=== PATIENT | female | born 2000 | race Caucasian/White ===

== ENCOUNTER 2024-11-19 16:29 | Emergency (ER) | payer BC, SELFPAY ==
[2024-11-19] VITALS (11 sets, daily range): BP systolic 112–148; BP diastolic 75–86; PULSE 97–119; RESP 14–22; TEMP 36.9; O2SAT 97–99
--- NOTE | ~2024-11-19 | US_ITS ---
EXAMINATION: US venous doppler [facility] DATE: 11/19/2024 17:13 INDICATION: vericose veins, r/o dvt . TECHNIQUE: Grayscale images without and with compression and Doppler images of the left lower extremi ty veins were obtained. COMPARISON: None FINDINGS: The left common femoral vein, profunda (deep) femoral vein, femoral vein, popliteal vein, peroneal v ein, posterior tibial veins, gastrocnemius vein, and greater saphenous vein are patent. IMPRESSION: Patent left lower extremity veins. No evidence of deep venous thrombosis. Reviewed, dictated and finalized at location K.
[2024-11-19 17:00] LABS: Hematocrit 29.3 % (37.0-47.0); Hemoglobin 9.5 g/dL (12.0-15.0); Immature Granulocyte Percent A 0.5 % (0-0.5); Lymphocytes Absolute Auto 1.53 K/mm3 (0.9-3.2); Mean Corpuscular HGB Conc 32.4 g/dl (32-36); Mean Corpuscular Hemoglobin 29.3 pg (26-34); Mean Corpuscular Volume 90.4 fl (80-100); Nucleated Red Blood Cells Absolute Auto 0.000 K/mm3 (0.0-0.012); Nucleated Red Blood Cells Perc 0.0 % (0.0-0.2); Platelet Count Result 273 k/mm3 (150-375); Red Blood Count 3.24 M/mm3 (4.2-5.4); White Blood Count 8.8 K/mm3 (4.5-10.0)
[2024-11-19 17:09] LABS: Alanine Aminotransferase 16 U/L (6-35); Albumin Level 3.4 g/dL (3.5-5.1); Alkaline Phosphatase 94 U/L (38-126); Anion Gap 9 mmol/L (4-12); Aspartate Amino Transferase 22 U/L (14-36); Bilirubin,Total 0.4 mg/dL (0.2-1.3); Blood Urea Nitrogen 7 mg/dL (7-17); Calcium 8.8 mg/dL (8.4-10.2); Carbon Dioxide 21 mmol/L (22-30); Chloride 105 mmol/L (98-107); Estimated CRCL calculation 147 ml/min; Estimated Glomerular Filt Rate > 60; Glucose 133 mg/dL (65-110); Potassium 3.5 mmol/L (3.4-5.0); Sodium 135 mmol/L (137-145); Total Protein 6.7 g/dL (6.3-8.2)
[2024-11-19 17:17] LABS: INR 1.0; Partial Thromboplastin Time 27.6 Seconds (22.3-36.8); Prothrombin Time 13.6 Seconds (11.1-14.7)
--- NOTE | 2024-11-19 17:19 | ED_ITS ---
HPI - Extremity Problem General Chief complaint: Extremity Problem,Nontraumatic Stated complaint: left leg pain Time Seen by Provider: 11/19/24 16:31 History of Present Illness HPI Narrative: Patient is a 24-year-old female who presents ER with distended veins the left lower extremity. She has noticed some over last 1-2 months. She is 35 weeks . She reports the veins become very engorged and sometimes painful and red when she is standing. No chest pain. Mild shortness of breath related to her . No fevers chills or sweats. No history DVT. PCP wanted her evaluated. Related Data Allergies Allergy/AdvReac Type Severity Reaction Status Date / Time No Known Allergies Allergy Verified 11/19/24 17:01 Review of Systems 2 Review of Systems: All systems reviewed & are unremarkable except as noted in HPI and below Constitutional: Constitutional: Reports no additional constitutional complaints Cardiovascular: Cardiovascular: Reports no additional cardiovascular complaints Respiratory: Respiratory: Reports no additional respiratory complaints Musculoskeletal: Musculoskeletal: Reports no additional musculoskeletal complaints Neurologic: Reports system reviewed and no additional complaints, except as documented Exam 2 Narrative: GENERAL: Well-appearing, well-nourished, and in no acute distress. HEAD: Normocephalic, atraumatic. ENT: Mucous membranes moist. CHEST: Clear to auscultation. No respiratory distress. HEART: Regular rate and rhythm. Normal peripheral pulses. ABDOMEN: Soft, nontender, nondistended. EXTREMITIES: Normal range of motion. No edema. Varicose veins left lower extremity. No evidence of thrombosis or inflammation. SKIN: Warm, dry, no rash. NEURO: Alert and oriented x3. PSYCH: Normal mood and affect. Course Course Emergency Course: Patient resting comfortably. Informed of results. No DVT. Recommend compression hose to above the knee for discomfort. Vital Signs Vital signs: Vital Signs Temperature 98.4 F 11/19/24 16:56 Pulse Rate 107 H 11/19/24 16:56 Respiratory Rate 20 11/19/24 16:56 Blood Pressure 112/75 11/19/24 16:56 Pulse Oximetry 99 11/19/24 16:56 Oxygen Delivery Room Air 11/19/24 16:56 Temperature 98.4 F 11/19/24 16:56 Pulse Rate 107 H 11/19/24 16:56 Respiratory Rate 20 11/19/24 16:56 Blood Pressure 112/75 11/19/24 16:56 Pulse Oximetry 99 11/19/24 16:56 Oxygen Delivery Room Air 11/19/24 16:56 MDM - Extremity (Nontraumatic) Lab Data 11/19/24 16:51 11/19/24 16:51 Labs: Lab Results 11/19/24 Range/Units 16:51 WBC 8.8 (4.5-10.0) K/mm3 RBC 3.24 L (4.2-5.4) M/mm3 Hgb 9.5 L (12.0-15.0) g/dL Hct 29.3 L (37.0-47.0) % MCV 90.4 (80-100) fl MCH 29.3 (26-34) pg MCHC 32.4 (32-36) g/dl RDW 14.6 H (11.5-14.5) % Plt Count 273 (150-375) k/mm3 MPV 8.7 (7.4-10.4) fl Immature Gran % (Auto) 0.5 (0-0.5) % Neut % (Auto) 73.3 H (45.5-73.1) % Lymph % (Auto) 17.3 L (18.3-44.2) % [place] % (Auto) 7.5 (2.6-8.5) % Eos % (Auto) 1.2 (0-4.4) % Baso % (Auto) 0.2 (0.2-1.2) % Lymph # (Auto) 1.53 (0.9-3.2) K/mm3 [place] # (Auto) 0.7 H (0.1-0.6) K/mm3 Eos # (Auto) 0.1 (0-0.3) K/mm3 Baso # (Auto) 0.0 (0.0-0.1) K/mm3 Abs Immat Gran (auto) 0.04 H (0.00-0.031) K/mm3 Absolute Neuts (auto) 6.5 (1.3-6.7) K/mm3 Absolute Nucleated RBC 0.000 (0.0-0.012) K/mm3 Nucleated RBC % 0.0 (0.0-0.2) % PT 13.6 (11.1-14.7) Seconds INR 1.0 APTT 27.6 (22.3-36.8) Seconds Sodium 135 L (137-145) mmol/L Potassium 3.5 (3.4-5.0) mmol/L Chloride 105 (98-107) mmol/L Carbon Dioxide 21 L (22-30) mmol/L Anion Gap 9 (4-12) mmol/L BUN 7 (7-17) mg/dL Creatinine 0.60 L (0.7-1.0) mg/dL Estim Creat Clear Calc 147 ml/min Estimated GFR > 60 (59 - ) Glucose 133 H (65-110) mg/dL Calcium 8.8 (8.4-10.2) mg/dL Total Bilirubin 0.4 (0.2-1.3) mg/dL AST 22 (14-36) U/L ALT 16 (6-35) U/L Alkaline Phosphatase 94 (38-126) U/L Total Protein 6.7 (6.3-8.2) g/dL Albumin 3.4 L (3.5-5.1) g/dL Imaging Data Radiologist's impression: ITS Impressions Venous Doppler Study 11/19/24 17:14 IMPRESSION: Patent left lower extremity veins. No evidence of deep venous thrombosis. Discharge Plan Discharge Clinical Impression: Varicose veins during Patient Disposition: Home Condition: Stable Instructions: Venous Insufficiency (DC) Additional Instructions: Is recommended you wear compression socks that go above your knee to help with your engorged varicose veins. Follow-up with your primary care doctor for further treatment evaluation. Patient Language: Syrian Follow-up/Referrals: PHYSICIAN NOT ON STAFF,NONSTAFF [Primary Care Provider] - 1 Week
== END 2024-11-19 17:49 | disposition home or self-care (01) ==
PROVIDERS: Emergency Provider Emergency Medicine
DX: O22.03 Varicose veins of lower extremity in pregnancy, third trimester (principal); I83.892 Varicose veins of left lower extremity with other complications; Z3A.35 35 weeks gestation of pregnancy
CPT/HCPCS: 36415; 80053; 85025; 85610; 85730; 93971; 99284

== ENCOUNTER 2024-12-03 10:35 | Outpatient (RCR) | payer BC, SELFPAY ==
[2024-11-14 17:05] VITALS: BP 124/79; PULSE 91
[2024-12-03 12:52] VITALS: BP 122/82; PULSE 95
== END 2024-12-25 09:19 | disposition home or self-care (01) ==
LOC: ANHOBOP 10:35
PROVIDERS: Visit Provider Obstetrics & Gynecology
DX: O36.8190 Decreased fetal movements, unspecified trimester, not applicable or unspecified (principal)
CPT/HCPCS: 59025

== ENCOUNTER 2024-12-22 18:23 | Observation (INO) | payer BC, SELFPAY ==
[2024-12-22] VITALS (22 sets, daily range): BP systolic 123–164; BP diastolic 81–114; PULSE 91–129; RESP 18–23; TEMP 36.4; O2SAT 90–100; BMI 33.8
--- NOTE | 2024-12-22 18:49 | ED.GENADULT ---
HPI - General Adult General Chief complaint: Unspecified <Liliane Cerna PA-C - Last Filed: 12/22/24 20:01> Stated complaint: hemorrhoid <Liliane Cerna PA-C - Last Filed: 12/22/24 20:01> Time Seen by Provider: 12/22/24 18:27 <Lilaine Cerna PA-C - Last Filed: 12/22/24 20:01> History of Present Illness HPI narrative: 24-year-old female who is 38 weeks and 4 days presents emergency department with concerns for a hemorrhoid. Patient states over the past week she has had a painful hemorrhoid to her rectum. She has been using [id number] hemorrhoid creams and has been performing soaks without improvement. She denies any rectal bleeding or abdominal pain. She does note that she has not been having bowel movements as frequently as normal. Denies vaginal bleeding or leakage of fluids. Her OBGYN is Dr. Paloma Edwards. States she has been feeling normal movement. <Liliane Cerna PA-C - Last Filed: 12/22/24 20:01> Related Data Home medications: Home Medications ?Medication ?Instructions ?Recorded ?Confirmed ?Last Taken ?Type ferric maltol 30 mg capsule 30 mg PO DAILY 12/03/24 12/13/24 12/13/24 History (Accrufer) levothyroxine 100 mcg tablet 100 mcg PO DAILY 12/03/24 12/13/24 12/13/24 History <Liliane Cerna PA-C - Last Filed: 12/22/24 20:01> Allergies/adverse reactions: Allergies Allergy/AdvReac Type Severity Reaction Status Date / Time No Known Allergies Allergy Verified 12/13/24 14:41 <Liliane Cerna PA-C - Last Filed: 12/22/24 20:01> Review of Systems Review of Systems: All systems reviewed & are unremarkable except as noted in HPI and below <Liliane Cerna PA-C - Last Filed: 12/22/24 20:01> PMFSH Family History Family History: Family History Grandparent Ovarian cancer <Liliane Cerna PA-C - Last Filed: 12/22/24 20:01> Social History Social History: Social History Substance use: never Spiritual care concerns: No <Liliane Cerna PA-C - Last Filed: 12/22/24 20:01> Exam Narrative: GENERAL: Well-appearing, well-nourished, and in no acute distress. HEAD: Normocephalic, atraumatic. EYES: EOMI. ENT: Nares clear, no rhinorrhea or epistaxis. Mucous membranes moist. NECK: Supple. CHEST: Clear to auscultation. No respiratory distress. HEART: Regular rate and rhythm. No murmur heard. Normal peripheral pulses. ABDOMEN: Normoactive bowel sounds. Abdomen soft, gravid nontender. Rectal exam chaperoned by UZMA Partida: 2 large prolapsed internal hemorrhoids that are easily reduced and nonthrombosed. No fissures, no bleeding EXTREMITIES: Normal range of motion. No edema. SKIN: Warm, dry, no rash. NEURO: No focal deficits. Alert and oriented x3 <Liliane Cerna PA-C - Last Filed: 12/22/24 20:01> Course DEVELOPMENT ENGINEER/PA Physician Supervision This visit was performed by both a physician and an APC. I performed all aspects of the MDM as documented. <Tomas Mendoza MD - Last Filed: 12/22/24 21:13> Vital Signs Vital signs: Vital Signs Temperature 97.6 F 12/22/24 18:25 Pulse Rate 129 H 12/22/24 18:25 Respiratory Rate 18 12/22/24 18:25 Blood Pressure 152/103 H 12/22/24 18:25 Pulse Oximetry 100 12/22/24 18:25 Temperature 97.6 F 12/22/24 18:25 Pulse Rate 110 H 12/22/24 21:01 Respiratory Rate 21 H 12/22/24 19:46 Blood Pressure 125/89 12/22/24 21:01 Pulse Oximetry 98 12/22/24 19:46 <Liliane Cerna PA-C - Last Filed: 12/22/24 20:01> Vital Signs Temperature 97.6 F 12/22/24 18:25 Pulse Rate 129 H 12/22/24 18:25 Respiratory Rate 18 12/22/24 18:25 Blood Pressure 152/103 H 12/22/24 18:25 Pulse Oximetry 100 12/22/24 18:25 Temperature 97.6 F 12/22/24 18:25 Pulse Rate 110 H 12/22/24 21:01 Respiratory Rate 21 H 12/22/24 19:46 Blood Pressure 125/89 12/22/24 21:01 Pulse Oximetry 98 12/22/24 19:46 <Tomas Mendoza MD - Last Filed: 12/22/24 21:13> Medical Decision Making MDM Narrative Medical decision making narrative: 24-year-old female who is currently 38 weeks and 4 days presents to the emergency department for hemorrhoids for the past week. Exam is notable for 2 large prolapsed internal hemorrhoids which were easily reduced on exam. They are nonthrombosed and nonbleeding. Patient's vital signs are notable for hypertension and tachycardia. Blood pressure is 152/103 heart rate is 129 in triage. Patient does appear to be in acute pain due to the hemorrhoids and was given Tylenol. She does note that she has had elevated blood pressures the past few OB visits and states they have been checking her blood pressure closely and usually comes down with time and she is discharged home. Patient was monitored in the ED after given Tylenol for pain control with improvement in heart rate to 106 bpm, however blood pressure remained elevated 147/107 despite improvement in her pain. She denies any abdominal pain, vision changes or current headaches. She does note that she has had increasing headaches over the past week and was planning to discuss this with her OBGYN at her next appointment. Lab work and EKG ordered. I discussed case with Dr. Dubose (on-call for Dr. Paloma Edwards) who advises admission to OB. Advises to add on uric acid and protein creatinine ratio. Pt agreeable with the plan. EKG shows sinus tachycardia with a rate of 121 bpm, normal [place] interval, normal QRS duration, normal QTC, no ischemic changes. <Liliane Cerna PA-C - Last Filed: 12/22/24 20:01> Vital Signs Vital Signs: Vital Signs Temperature 97.6 F 12/22/24 18:25 Pulse Rate 129 H 12/22/24 18:25 Respiratory Rate 18 12/22/24 18:25 Blood Pressure 152/103 H 12/22/24 18:25 Pulse Oximetry 100 12/22/24 18:25 Temperature 97.6 F 12/22/24 18:25 Pulse Rate 110 H 12/22/24 21:01 Respiratory Rate 21 H 12/22/24 19:46 Blood Pressure 125/89 12/22/24 21:01 Pulse Oximetry 98 12/22/24 19:46 <Liliane Cerna PA-C - Last Filed: 12/22/24 20:01> Vital Signs Temperature 97.6 F 12/22/24 18:25 Pulse Rate 129 H 12/22/24 18:25 Respiratory Rate 18 12/22/24 18:25 Blood Pressure 152/103 H 12/22/24 18:25 Pulse Oximetry 100 12/22/24 18:25 Temperature 97.6 F 12/22/24 18:25 Pulse Rate 110 H 12/22/24 21:01 Respiratory Rate 21 H 12/22/24 19:46 Blood Pressure 125/89 12/22/24 21:01 Pulse Oximetry 98 12/22/24 19:46 <Tomas Mendoza MD - Last Filed: 12/22/24 21:13> Lab Data Result diagrams: 12/22/24 19:45 12/22/24 19:45 <Liliane Cerna PA-C - Last Filed: 12/22/24 20:01> Labs: Lab Results 12/22/24 Range/Units 19:45 WBC 8.7 (4.5-10.0) K/mm3 RBC 3.46 L (4.2-5.4) M/mm3 Hgb 9.6 L (12.0-15.0) g/dL Hct 30.1 L (37.0-47.0) % MCV 87.0 (80-100) fl MCH 27.7 (26-34) pg MCHC 31.9 L (32-36) g/dl RDW 14.8 H (11.5-14.5) % Plt Count 274 (150-375) k/mm3 MPV 8.5 (7.4-10.4) fl Immature Gran % (Auto) 0.3 (0-0.5) % Neut % (Auto) 75.0 H (45.5-73.1) % Lymph % (Auto) 16.5 L (18.3-44.2) % [place] % (Auto) 7.1 (2.6-8.5) % Eos % (Auto) 0.8 (0-4.4) % Baso % (Auto) 0.3 (0.2-1.2) % Lymph # (Auto) 1.43 (0.9-3.2) K/mm3 [place] # (Auto) 0.6 (0.1-0.6) K/mm3 Eos # (Auto) 0.1 (0-0.3) K/mm3 Baso # (Auto) 0.0 (0.0-0.1) K/mm3 Abs Immat Gran (auto) 0.03 (0.00-0.031) K/mm3 Absolute Neuts (auto) 6.5 (1.3-6.7) K/mm3 Absolute Nucleated RBC 0.000 (0.0-0.012) K/mm3 Nucleated RBC % 0.0 (0.0-0.2) % Sodium 133 L (137-145) mmol/L Potassium 3.6 (3.4-5.0) mmol/L Chloride 103 (98-107) mmol/L Carbon Dioxide 23 (22-30) mmol/L Anion Gap 7 (4-12) mmol/L BUN 8 (7-17) mg/dL Creatinine 0.59 L (0.7-1.0) mg/dL Estim Creat Clear Calc 150 ml/min Estimated GFR > 60 (59 - ) Glucose 148 H (65-110) mg/dL Uric Acid 4.2 (2.5-7.5) mg/dL Calcium 9.0 (8.4-10.2) mg/dL Magnesium 1.6 (1.6-2.3) mg/dL Total Bilirubin 0.4 (0.2-1.3) mg/dL AST 22 (14-36) U/L ALT 18 (6-35) U/L Alkaline Phosphatase 127 H (38-126) U/L Total Protein 6.7 (6.3-8.2) g/dL Albumin 3.2 L (3.5-5.1) g/dL TSH 5.280 H (0.465-4.680) uIU/mL Free T4 0.82 (0.78-2.19) ng/dL <Liliane Cerna PA-C - Last Filed: 12/22/24 20:01> Lab Results 12/22/24 Range/Units 19:45 WBC 8.7 (4.5-10.0) K/mm3 RBC 3.46 L (4.2-5.4) M/mm3 Hgb 9.6 L (12.0-15.0) g/dL Hct 30.1 L (37.0-47.0) % MCV 87.0 (80-100) fl MCH 27.7 (26-34) pg MCHC 31.9 L (32-36) g/dl RDW 14.8 H (11.5-14.5) % Plt Count 274 (150-375) k/mm3 MPV 8.5 (7.4-10.4) fl Immature Gran % (Auto) 0.3 (0-0.5) % Neut % (Auto) 75.0 H (45.5-73.1) % Lymph % (Auto) 16.5 L (18.3-44.2) % [place] % (Auto) 7.1 (2.6-8.5) % Eos % (Auto) 0.8 (0-4.4) % Baso % (Auto) 0.3 (0.2-1.2) % Lymph # (Auto) 1.43 (0.9-3.2) K/mm3 [place] # (Auto) 0.6 (0.1-0.6) K/mm3 Eos # (Auto) 0.1 (0-0.3) K/mm3 Baso # (Auto) 0.0 (0.0-0.1) K/mm3 Abs Immat Gran (auto) 0.03 (0.00-0.031) K/mm3 Absolute Neuts (auto) 6.5 (1.3-6.7) K/mm3 Absolute Nucleated RBC 0.000 (0.0-0.012) K/mm3 Nucleated RBC % 0.0 (0.0-0.2) % Sodium 133 L (137-145) mmol/L Potassium 3.6 (3.4-5.0) mmol/L Chloride 103 (98-107) mmol/L Carbon Dioxide 23 (22-30) mmol/L Anion Gap 7 (4-12) mmol/L BUN 8 (7-17) mg/dL Creatinine 0.59 L (0.7-1.0) mg/dL Estim Creat Clear Calc 150 ml/min Estimated GFR > 60 (59 - ) Glucose 148 H (65-110) mg/dL Uric Acid 4.2 (2.5-7.5) mg/dL Calcium 9.0 (8.4-10.2) mg/dL Magnesium 1.6 (1.6-2.3) mg/dL Total Bilirubin 0.4 (0.2-1.3) mg/dL AST 22 (14-36) U/L ALT 18 (6-35) U/L Alkaline Phosphatase 127 H (38-126) U/L Total Protein 6.7 (6.3-8.2) g/dL Albumin 3.2 L (3.5-5.1) g/dL TSH 5.280 H (0.465-4.680) uIU/mL Free T4 0.82 (0.78-2.19) ng/dL <Tomas Mendoza MD - Last Filed: 12/22/24 21:13> Discharge Plan Discharge Clinical Impression: Internal hemorrhoid, Elevated blood pressure affecting in third trimester, antepartum <Liliane Cerna PA-C - Last Filed: 12/22/24 20:01> Patient Disposition: Still a Patient <Liliane Cerna PA-C - Last Filed: 12/22/24 20:01> Condition: Stable <Liliane Cerna PA-C - Last Filed: 12/22/24 20:01>
[2024-12-22] MEDS: ACETAMINOPHEN 500 MG TABLET 1000 MG PO (19:15)
--- NOTE | 2024-12-22 19:33 | ECG_ITS ---
Test Date: 2024-12-22 19:48:12 Measurements Intervals Bernard Rate: 121 P: 40 HI: 153 QRS: 9 QRSD: 90 T: 27 QT: 313 QTc: 445 Interpretive Statements SINUS TACHYCARDIA VOLTAGE CRITERIA FOR LVH, CONSIDER NORMAL VARIANT Electronically Signed On 12-23-2024 07:29:55 CDT by Scott Cedeño D.O
[2024-12-22] MEDS: SODIUM CHLORIDE 0.9% IV 1,000 ML 999 ML IV CONT (19:48)
[2024-12-22 19:57] LABS: Hematocrit 30.1 % (37.0-47.0); Hemoglobin 9.6 g/dL (12.0-15.0); Immature Granulocyte Percent A 0.3 % (0-0.5); Lymphocytes Absolute Auto 1.43 K/mm3 (0.9-3.2); Mean Corpuscular HGB Conc 31.9 g/dl (32-36); Mean Corpuscular Hemoglobin 27.7 pg (26-34); Mean Corpuscular Volume 87.0 fl (80-100); Nucleated Red Blood Cells Absolute Auto 0.000 K/mm3 (0.0-0.012); Nucleated Red Blood Cells Perc 0.0 % (0.0-0.2); Platelet Count Result 274 k/mm3 (150-375); Red Blood Count 3.46 M/mm3 (4.2-5.4); White Blood Count 8.7 K/mm3 (4.5-10.0)
[2024-12-22 20:07] LABS: Alanine Aminotransferase 18 U/L (6-35); Albumin Level 3.2 g/dL (3.5-5.1); Alkaline Phosphatase 127 U/L (38-126); Anion Gap 7 mmol/L (4-12); Aspartate Amino Transferase 22 U/L (14-36); Bilirubin,Total 0.4 mg/dL (0.2-1.3); Blood Urea Nitrogen 8 mg/dL (7-17); Calcium 9.0 mg/dL (8.4-10.2); Carbon Dioxide 23 mmol/L (22-30); Chloride 103 mmol/L (98-107); Estimated CRCL calculation 150 ml/min; Estimated Glomerular Filt Rate > 60; Glucose 148 mg/dL (65-110); Magnesium 1.6 mg/dL (1.6-2.3); Potassium 3.6 mmol/L (3.4-5.0); Sodium 133 mmol/L (137-145); Total Protein 6.7 g/dL (6.3-8.2); Uric Acid 4.2 mg/dL (2.5-7.5)
[2024-12-22] MEDS: LABETALOL HCL 100 MG TABLET PO (20:46)
[2024-12-22 20:53] LABS: Free T4 Free Thyroxine 0.82 ng/dL (0.78-2.19)
[2024-12-22 21:06] LABS: Thyroid Stimulating Hormone 5.280 uIU/mL (0.465-4.680)
[2024-12-22 21:17] LABS: Total Protein Urine Random 8 mg/dL; Ur Ttl Prot Creatinine Ratio 0.05 mg/mg (0-0.20)
[2024-12-22 21:24] LABS: Add Urine Microscopic? YES; Appearance Urine Cloudy (Clear); Glucose Urine UA Negative (Negative); Leukocyte Esterase Ur 1+ LEU/UL (Negative); Need Manual Microscopic Reviewed; Nitrate Urine Negative (Negative); Non Pathogenic Casts 0-2; Specific Grav Ur 1.019 (1.001-1.035)
--- NOTE | 2024-12-22 21:47 | OBADM ---
This patient, Angela Muse, admitted to the OB room OB Post 117 for observation. Patient/family oriented to hospital policies and general routines including ID bracelet, bed and alarms, visiting hours, pain management, procedures, bathroom and other care routines, personal items, smoking policy, room service/diet, and visiting hours. Patient/Family are encouraged to report perceived risks to care and to ask questions if they do not understand what they are told or what they should do.
--- NOTE | 2025-01-05 08:04 | PM.OBTRLD ---
OB - Triage/Final Diagnosis Visit Information Reason for evaluation: other (Elevated blood pressure) Comments/Additional reasons for admission: I have assessed the risk for this patient, Angelaricardo Muse, and determined that she would benefit from observation care. Evaluation Laboratory results: Laboratory Tests 12/22/24 12/22/24 19:45 21:04 WBC 8.7 RBC 3.46 L Hgb 9.6 L Hct 30.1 L MCV 87.0 MCH 27.7 MCHC 31.9 L RDW 14.8 H Plt Count 274 MPV 8.5 Immature Gran % (Auto) 0.3 Neut % (Auto) 75.0 H Lymph % (Auto) 16.5 L [place] % (Auto) 7.1 Eos % (Auto) 0.8 Baso % (Auto) 0.3 Lymph # (Auto) 1.43 [place] # (Auto) 0.6 Eos # (Auto) 0.1 Baso # (Auto) 0.0 Abs Immat Gran (auto) 0.03 Absolute Neuts (auto) 6.5 Absolute Nucleated RBC 0.000 Nucleated RBC % 0.0 Sodium 133 L Potassium 3.6 Chloride 103 Carbon Dioxide 23 Anion Gap 7 BUN 8 Creatinine 0.59 L Estim Creat Clear Calc 150 Estimated GFR > 60 Glucose 148 H Uric Acid 4.2 Calcium 9.0 Magnesium 1.6 Total Bilirubin 0.4 AST 22 ALT 18 Alkaline Phosphatase 127 H Total Protein 6.7 Albumin 3.2 L TSH 5.280 H Free T4 0.82 Urine Color Yellow Urine Appearance Cloudy H Urine pH 6.5 Ur Specific [place] 1.019 Urine Protein Trace Urine Glucose (UA) Negative Urine Ketones Trace H Ur Blood (Man) Negative Urine Nitrate Negative Urine Bilirubin Negative Urine Urobilinogen 1.0 Add Ur Microanalysis Reviewed Leukocyte Esterase Rfl 1+ H Urine RBC 0-2 Urine WBC 6-10 H Ur Squamous Epith Cells Many H Urine Bacteria 3+ H Urine Casts 0-2 U Random Total Protein 8 Urine Creatinine 166.2 Protein/Creat Ratio 2 0.05
== END 2024-12-22 22:43 | disposition home or self-care (01) ==
LOC: ANHED 19:42 → ANHOBPP 12-23 02:34
PROVIDERS: Admitting Provider Obstetrics & Gynecology Gynecology; Emergency Provider Physician Assistant; Visit Provider Obstetrics & Gynecology Gynecology
DX: O22.43 Hemorrhoids in pregnancy, third trimester (principal); O16.3 Unspecified maternal hypertension, third trimester; Z3A.38 38 weeks gestation of pregnancy; R00.0 Tachycardia, unspecified; B95.1 Streptococcus, group B, as the cause of diseases classified elsewhere; E03.9 Hypothyroidism, unspecified; Z80.41 Family history of malignant neoplasm of ovary
CPT/HCPCS: 36415; 80053; 81001; 82570; 83735; 84156; 84439; 84443; 84550; 85025; 93005; 96360; 99285; A9270; G0378; J7030

== ENCOUNTER 2024-12-24 04:56 | Inpatient (IN) | payer BC, SELFPAY ==
[2024-12-23 08:00] VITALS: BMI 33.9
[2024-12-24] VITALS (320 sets, daily range): BP systolic 86–144; BP diastolic 46–111; PULSE 61–135; TEMP 36.2–37.1; O2SAT 95–100
--- NOTE | 2024-12-24 05:07 | PM.IMHP ---
H&P: HPI History of Present Illness Date/Time: 12/24/24 05:07 Chief Complaint: Elevated blood pressure at term Narrative: This is a 24-year-old 5 para 1 who is last menstrual period is unknown, EDC is 01/01/2025, confirmed by 10 week ultrasound presents at 3867 weeks gestation for induction of labor secondary to elevated blood pressures. She has known high blood pressure was on labetalol to start. She stopped that and the blood pressures of increased cyst. She is positive for group B strep and hypothyroid controlled on thyroxine. She will be prophylaxed for group B strep PIH labs were normal. Review of Systems Review of Systems: All systems reviewed & are unremarkable except as noted in HPI and below PMFSH Family History Family History Grandparent Ovarian cancer Social History Social History Substance use: never Lack of Transportation: No Lack of Food: Never True Current Housing: I Have Housing Concerned About Future Housing: No Difficulty Paying Gas/Electric Bills: No Difficulty Paying for Meds: No Currently Unemployed: No Education: High School Diploma/GED Difficulty w/ Childcare or Family Care: No Spiritual care concerns: No Meds Home Medications and Allergies Home Medications ?Medication ?Instructions ?Recorded ?Confirmed ?Type ferric maltol 30 mg capsule 30 mg PO DAILY 12/03/24 12/13/24 History (Accrufer) levothyroxine 100 mcg tablet 100 mcg PO DAILY 12/03/24 12/13/24 History Allergies Allergy/AdvReac Type Severity Reaction Status Date / Time No Known Allergies Allergy Verified 12/13/24 14:41 Exam Const: General: cooperative, healthy appearing and comfortable Nutritional Appearance: average body habitus Orientation/consciousness: oriented to person, oriented to place and oriented to time HENMT: Head: normal to inspection Resp: Effort & Inspection: normal respiratory effort Cardio: Rate: regular rate Rhythm: regular rhythm Heart sounds: S1 normal heart sound present and S2 normal heart sound present GI: Inspection: normal to inspection (Gravid soft uterus) : External Female Exam: normal external appearance Speculum Exam - Vagina: normal appearance of the vagina Speculum Exam - Cervix: normal appearance of the cervix (Cervix 2/50/2. FHT is reassuring) Assessment and Plan Assessment and plan (1) Elevated blood pressure affecting in third trimester, antepartum: Code(s): O16.3 - Unspecified maternal hypertension, third trimester Status: Acute (2) Positive testing for group B Streptococcus: Code(s): B95.1 - Streptococcus, group B, as the cause of diseases classified elsewhere Status: Acute Plan Medical induction of labor. Spontaneous vaginal delivery is expected. Group B strep prophylaxis will be given. She is an epidural candidate. Follow blood pressure closely
[2024-12-24] MEDS: LACTATED RINGERS 1,000 ML 125 ML IV CONT ×3 (06:00→22:35)
[2024-12-24] MEDS: AMPICILLIN SODIUM 2 GM in SODIUM CHLORIDE 0.9% IV 100 ML 200 ML IVPB (06:01)
[2024-12-24 06:07] LABS: Hematocrit 31.9 % (37.0-47.0); Hemoglobin 10.0 g/dL (12.0-15.0); Immature Granulocyte Percent A 0.3 % (0-0.5); Lymphocytes Absolute Auto 1.82 K/mm3 (0.9-3.2); Mean Corpuscular HGB Conc 31.3 g/dl (32-36); Mean Corpuscular Hemoglobin 27.9 pg (26-34); Mean Corpuscular Volume 89.1 fl (80-100); Nucleated Red Blood Cells Absolute Auto 0.000 K/mm3 (0.0-0.012); Nucleated Red Blood Cells Perc 0.0 % (0.0-0.2); Platelet Count Result 307 k/mm3 (150-375); Red Blood Count 3.58 M/mm3 (4.2-5.4); White Blood Count 9.2 K/mm3 (4.5-10.0)
[2024-12-24] MEDS: OXYTOCIN 30 UNITS/NS 500 ML 30 UNITS/500 ML BAG IV CONT (06:25)
[2024-12-24 06:51] LABS: Syphilis IgG/IgM Antibody Non-Reactive (Nonreactive)
--- NOTE | 2024-12-24 06:53 | WPDANESEPP ---
Anes - Eval Pre Procedure Procedure: labor epidural Date/Time: 12/24/24 06:53 Surgeon: regine Preop Diagnosis: pain during labor Pre Op Diagnosis: IOL Patient Data Age: 24 Gender: F Height: 1.7 m Weight: 98.18 kg Last Vital Signs Temp 36.4 C 12/24/24 06:25 Pulse 87 12/24/24 06:46 BP 136/86 12/24/24 06:46 Pulse Ox 100 12/24/24 06:52 O2 Del Method Room Air 12/24/24 05:26 Allergies Allergy/AdvReac Type Severity Reaction Status Date / Time No Known Allergies Allergy Verified 12/24/24 06:53 Home Medications ?Medication ?Instructions ?Recorded ?Confirmed ?Type ferric maltol 30 mg capsule 30 mg PO DAILY 12/03/24 12/13/24 History (Accrufer) levothyroxine 100 mcg tablet 75 mcg PO DAILY 12/03/24 12/24/24 History labetalol 100 mg tablet 100 mg PO DAILY 12/24/24 12/24/24 History Laboratory Tests 12/24/24 05:21 WBC 9.2 K/mm3 (4.5-10.0) RBC 3.58 L M/mm3 (4.2-5.4) Hgb 10.0 L g/dL (12.0-15.0) Hct 31.9 L % (37.0-47.0) MCV 89.1 fl (80-100) MCH 27.9 pg (26-34) MCHC 31.3 L g/dl (32-36) RDW 14.7 H % (11.5-14.5) Plt Count 307 k/mm3 (150-375) MPV 8.7 fl (7.4-10.4) Immature Gran % (Auto) 0.3 % (0-0.5) Neut % (Auto) 70.5 % (45.5-73.1) Lymph % (Auto) 19.8 % (18.3-44.2) [place] % (Auto) 8.2 % (2.6-8.5) Eos % (Auto) 0.9 % (0-4.4) Baso % (Auto) 0.3 % (0.2-1.2) Lymph # (Auto) 1.82 K/mm3 (0.9-3.2) [place] # (Auto) 0.8 H K/mm3 (0.1-0.6) Eos # (Auto) 0.1 K/mm3 (0-0.3) Baso # (Auto) 0.0 K/mm3 (0.0-0.1) Abs Immat Gran (auto) 0.03 K/mm3 (0.00-0.031) Absolute Neuts (auto) 6.5 K/mm3 (1.3-6.7) Absolute Nucleated RBC 0.000 K/mm3 (0.0-0.012) Nucleated RBC % 0.0 % (0.0-0.2) Syphilis IgG/IgM Ab Non-reactive (Nonreactive) Blood Type Pending Antibody Screen Pending Patient hx anesthesia problems: none Family hx anesthesia problems: none Results Review: All pre-operative results and documents have been reviewed as part of the pre-operative evaluation. [facility] Past Medical History Medical History (Updated 12/24/24 @ 06:54 by Pilar Marks CRNA) Anxiety IUP (intrauterine ), incidental Family History Family History Grandparent Ovarian cancer Social History Social History Substance use: never Lack of Transportation: No Lack of Food: Never True Current Housing: I Have Housing Concerned About Future Housing: No Difficulty Paying Gas/Electric Bills: No Difficulty Paying for Meds: No Currently Unemployed: No Education: High School Diploma/GED Difficulty w/ Childcare or Family Care: No Spiritual care concerns: No Exam Day of Procedure 12/24/24 06:53
[2024-12-24] MEDS: LEVOTHYROXINE SODIUM 75 MCG TABLET PO (07:20)
[2024-12-24] MEDS: PHENYLEPHRINE 1,000 MCG/10 ML SYRINGE 100 MCG IV PUSH (09:35)
[2024-12-24] MEDS: AMPICILLIN SODIUM 1 GM in SODIUM CHLORIDE 0.9% IV 50 ML 100 ML IVPB ×4 (09:39→21:28)
--- NOTE | 2024-12-24 11:54 | PM.OBPNLAB ---
Pain Control Date/time seen: 12/24/24 11:54 Pain control: tolerating well and epidural Pelvic Exam Dilation (cm): 3 Effacement (%): 75 station: -2 Amniotic membrane status: Leaking Comments: iupc placed Contractions Monitor mode: Internal
--- NOTE | 2024-12-24 16:24 | PM.OBPNLAB ---
Pain Control Date/time seen: 12/24/24 16:24 Pain control: tolerating well and epidural Pelvic Exam Dilation (cm): 6 Effacement (%): 75 station: -2 Amniotic membrane status: Leaking Comments: start amnioinfusion Contractions Monitor mode: Internal
[2024-12-24] MEDS: ONDANSETRON INJ 4 MG/2 ML VIAL IV PUSH (17:04)
[2024-12-24] MEDS: FAMOTIDINE 20 MG/2 ML VIAL IV PUSH (19:10)
[2024-12-24] MEDS: SODIUM CHLORIDE 0.9% IV 300 ML 600 ML I-UTERINE (19:59)
[2024-12-25] VITALS (46 sets, daily range): BP systolic 115–144; BP diastolic 61–101; PULSE 78–117; RESP 18; TEMP 36.2–37.1; O2SAT 95–100
--- NOTE | 2024-12-25 01:51 | PM.OBPRVD ---
OB - Vaginal Delivery Note Procedure Delivery date: 12/25/24 Events: Gestational Hypertension and Positive Group B Strep (GBS) Induction method: AROM Delivery augmentation: Pitocin Delivery monitor: External FHT and External Uterine Route of delivery: Episiotomy description: None Laceration Description: Perineal - 1st Degree Delivery repair: vicryl Specimen: No Quantitative Blood Loss (ml): 62 Anesthesia type: Epidural Disposition: Floor Complications: No immediate complications Narrative: Patient was admitted on the a.m. of 12/24/2024 she received 6 doses of ampicillin epidural anesthesia was complete she pushed delivered the head spontaneously in the of 0 P position anterior posterior shoulder delivered spontaneously after a nuchal cord was checked and relieved x1 really around the occiput cord clamped x2 and cut passed of the table given Apgars of 8 [id number]. Cord blood was drawn. Placenta delivered intact spontaneously. Twenty of Pitocin placed IV to help firm the uterus. After inspecting the vagina small first-degree tear was seen at the perineum and a [id number] with a 3-0 Vicryl used. QBL was 62cc. All sponge, needle, instrument counts were correct. She received 6 doses of ampicillin for group B strep Baby Date of : 12/25/24 Time of : 01:38 Gestational Age by Date: 39 gender: Female presentation: vertex position: Right Occiput Posterior Placenta delivery description: Spontaneous Cord Vessel Description: 3 Vessels, Nuchal Cord and Loose score one minute: 8 score five minutes: 8
--- NOTE | 2024-12-25 01:55 | P.DS_ITS ---
DS: Admitting Diagnosis Discharge Date 12/27/2024 Admitting Diagnosis Term /gestational hypertension/positive group B strep DS: Discharge Diagnosis Discharge Diagnosis (1) Elevated blood pressure affecting in third trimester, antepartum: Code(s): O16.3 - Unspecified maternal hypertension, third trimester Status: Acute (2) IUP (intrauterine ), incidental: Code(s): Z33.1 - state, incidental Status: Acute (3) Positive testing for group B Streptococcus: Code(s): B95.1 - Streptococcus, group B, as the cause of diseases classified elsewhere Status: Acute DS: Summary Hospital Course Reason for hospitalization: Patient was admitted on 12/24/2024 for induction of labor and underwent spontaneous vaginal delivery on 12/25/2024. She received 6 doses of ampicillin prophylactically for group B strep Hospital Course: The patient's hospital course unremarkable. She remained afebrile. She was up, voiding without difficulty, eating regular diet, ambulating, and generally without complaints. Time Spent with Patient Time attestation: Total time spent providing and/or coordinating discharge services: Exam Const: General: cooperative, healthy appearing and comfortable Nutritional Appearance: average body habitus Orientation/consciousness: oriented to person, oriented to place and oriented to time HENMT: Head: normal to inspection Resp: Effort & Inspection: normal respiratory effort Cardio: Rate: regular rate Rhythm: regular rhythm Heart sounds: S1 normal heart sound present and S2 normal heart sound present GI: Inspection: normal to inspection (Gravid soft uterus) : External Female Exam: normal external appearance Speculum Exam - Vagina: normal appearance of the vagina Speculum Exam - Cervix: normal appearance of the cervix (Cervix 2/50/2. FHT is reassuring) DS: Data Data Completed and Pending Labs on day of discharge: Labs from last 24 hours 12/24/24 05:21 WBC 9.2 RBC 3.58 L Hgb 10.0 L Hct 31.9 L MCV 89.1 MCH 27.9 MCHC 31.3 L RDW 14.7 H Plt Count 307 MPV 8.7 Immature Gran % (Auto) 0.3 Neut % (Auto) 70.5 Lymph % (Auto) 19.8 [place] % (Auto) 8.2 Eos % (Auto) 0.9 Baso % (Auto) 0.3 Lymph # (Auto) 1.82 [place] # (Auto) 0.8 H Eos # (Auto) 0.1 Baso # (Auto) 0.0 Abs Immat Gran (auto) 0.03 Absolute Neuts (auto) 6.5 Absolute Nucleated RBC 0.000 Nucleated RBC % 0.0 Syphilis IgG/IgM Ab Non-reactive Blood Type A Positive Antibody Screen Negative Discharge Plan Discharge Attending physician on discharge: Gerry Hunter Discharging Clinician: Gerry Hunter Patient Disposition: Home Activity: may shower, no straining and pelvic rest Diet: heart healthy Wound Care Instructions: follow printed instructions Patient Instructions: Antibiotic Form Patient Language: Vietnamese Stand Alone Forms: General Discharge Information Follow-up/Referrals: Gerry Hunter MD [Physician, [facility]] Discharge Medications: No Action levothyroxine 100 mcg tablet 75 mcg PO DAILY Accrufer 30 mg capsule 30 mg PO DAILY labetalol 100 mg tablet 100 mg PO DAILY Date of admission: 12/24/24 04:56 Primary Care Provider: PHYSICIAN,ALLIED HEALTH TEACHER Admitting Provider: Gerry Hunter Attending physician on admission: Gerry Hunter Condition: Stable
[2024-12-25] MEDS: OXYTOCIN 30 UNITS/NS 500 ML 30 UNITS/500 ML BAG 125 UNITS IV CONT (01:57)
[2024-12-25] MEDS: IBUPROFEN 600 MG TABLET PO ×3 (03:02→22:30)
[2024-12-25] MEDS: LEVOTHYROXINE SODIUM 75 MCG TABLET PO (07:12)
[2024-12-25] MEDS: MULTIVIT/MIN/PREN/FOL AC/IRON TABLET 1 TAB PO (09:31)
[2024-12-25] MEDS: DOCUSATE SODIUM 100 MG CAPSULE PO (09:31)
[2024-12-25] MEDS: LABETALOL HCL 100 MG TABLET PO ×2 (10:12→22:29)
[2024-12-25] MEDS: DIBUCAINE 1% OINTMENT 30 GM TUBE 1 APPLIC TOPICAL (10:16)
--- NOTE | 2024-12-25 17:24 | PC.NURSE ---
~10:30: Introductions were made, then consulted with patient to assess needs related to . Mother led the conversation with her?plans to feed?her infant and the?experience so far. Mother states that will latch easily and denies pain. This RN observed latch which was shallow - although mother denies pain, this RN assisted mother with latching deeper and mother states that it does feel much better. Encouraged mother to call this RN if assistance is needed for feedings. ~17:15: Assisted mother with latching . Mother handles her great and can get to latch with minimal assistance.
[2024-12-26 03:41] LABS: Hematocrit 25.3 % (37.0-47.0); Hemoglobin 8.1 g/dL (12.0-15.0)
--- NOTE | 2024-12-26 05:46 | P.PNOB_ITS ---
OB - PN: Subj Subjective Date/time seen: 12/26/24 05:46 Patient comments: no complaints, pain well controlled and tolerating diet [place] baby status: doing well OB - PN: Obj Data Labs 12/26/24 03:31 Labs: Laboratory Results - last 24 hr 12/26/24 03:31 Hgb 8.1 L Hct 25.3 L OB - PN A/P Assessment and Plan (1) Positive testing for group B Streptococcus: Code(s): B95.1 - Streptococcus, group B, as the cause of diseases classified elsewhere Status: Acute (2) IUP (intrauterine ), incidental: Code(s): Z33.1 - state, incidental Status: Acute (3) Elevated blood pressure affecting in third trimester, antepartum: Code(s): O16.3 - Unspecified maternal hypertension, third trimester Status: Acute Plan home Time Spent With Patient Time: Total time spent is greater than 50% in coordination of care (as documented) at patient's floor/unit and/or counseling patient: Review of Systems 2 Review of Systems: All systems reviewed & are unremarkable except as noted in HPI and below Exam 2 Const: General: cooperative, healthy appearing and comfortable Nutritional Appearance: average body habitus Orientation/consciousness: oriented to person, oriented to place and oriented to time HENMT: Head: normal to inspection Resp: Effort & Inspection: normal respiratory effort Cardio: Rate: regular rate Rhythm: regular rhythm Heart sounds: S1 normal heart sound present and S2 normal heart sound present GI: Inspection: normal to inspection (Gravid soft uterus) : External Female Exam: normal external appearance Speculum Exam - Vagina: normal appearance of the vagina Speculum Exam - Cervix: normal appearance of the cervix (Cervix 2/50/2. FHT is reassuring)
[2024-12-26] MEDS: LEVOTHYROXINE SODIUM 75 MCG TABLET PO (07:34)
[2024-12-26 07:50] VITALS: BP 119/81; PULSE 74; RESP 18; TEMP 36.4; O2SAT 97
--- NOTE | 2024-12-26 08:00 | PC.NURSE ---
Reviewed standard discharge information with patient including monitoring for required output, transition of stools, feeding 8-12 times every 24 hours, milk production, and follow up at [facility] and with carousel attendant in the first week of life. Parents are encouraged to take the feeding log and continue to track feedings and output for the first week . Offered outpatient resources with Services at [facility]. Patient has the Mom/Baby Guide for further education and reference for common concerns, phone numbers, and guidance on when to call the doctor. A feeding plan was added to the ?s discharge plan. Patient states that she has no further questions or concerns regarding .???
[2024-12-26] MEDS: MULTIVIT/MIN/PREN/FOL AC/IRON TABLET 1 TAB PO (09:19)
[2024-12-26] MEDS: DOCUSATE SODIUM 100 MG CAPSULE PO (09:20)
[2024-12-29 11:06] VITALS: BP 129/76; PULSE 91; RESP 18; TEMP 37.1; O2SAT 100
== END 2024-12-26 10:29 | disposition home or self-care (01) | DRG 807 ==
LOC: ANHLDR 12-25 01:57 → ANHOBPP 12-25 03:54 → ANHOB2 12-25 17:02
PROVIDERS: Admitting Provider Obstetrics & Gynecology; Visit Provider Obstetrics & Gynecology
DX: O99.824 Streptococcus B carrier state complicating childbirth (principal); Z37.0 Single live birth; O99.284 Endocrine, nutritional and metabolic diseases complicating childbirth; E03.9 Hypothyroidism, unspecified; O13.4 Gestational [pregnancy-induced] hypertension without significant proteinuria, complicating childbirth; O70.0 First degree perineal laceration during delivery; O69.81X0 Labor and delivery complicated by cord around neck, without compression, not applicable or unspecified; Z3A.38 38 weeks gestation of pregnancy
CPT/HCPCS: 36415; 85014; 85018; 85025; 86593; 86850; 86900; 86901; A9270; J0290; J2371; J2405; J2590; J2795; J7030; J7120